=== PATIENT | male | born 1975 | race African-American/Black ===

== ENCOUNTER 2024-10-30 12:47 | Outpatient (AMB) | payer OTHER, SELFPAY ==
--- NOTE | 2024-10-30 13:00 | MHC.PC.OV ---
Vital Signs 10/30/24 13:09 10/30/24 13:22 Height 5 ft 5 in Weight 234 lb 8 oz BMI 39.0 BP 145/90 H 138/90 H Blood Pressure Location Rt brachial Lt brachial Position Sitting Sitting Respiration 16 Pulse 74 Pulse Source Pulse Oximeter Temp 98.2 F Temp Source Oral Pulse Oximetry (%) 98 Oxygen Delivery Method Room Air Intake Visit Reasons: EST CARE/REQUESTING PE Intake Note: patient here for new patient visit Solutions Delivery Consultant Required: No Allergies No Known Allergies Allergy (Verified 10/30/24 13:17) Medication List - Last Reconciled 10/30/24 by Mayank Anguiano CNP lisinopril-hydrochlorothiazide 10-12.5 mg 1 tab PO DAILY montelukast 10 mg PO DAILY rosuvastatin 10 mg PO DAILY Tobacco use date assessed: 10/30/24 Dental Screening Dental Screen Date: 10/30/24 Did you have a dental visit in the last 12 months?: No Did you have a dental problem in the last 6 months where you did not have access to dental care?: No Was dental information given to patient?: Yes HPI HPI Comments History of Present Illness Details New patient Prior PCP? - Dr. [place] in [place] Last office visit/CPE/labs - About a year ago Acute issue(s) - HTN. He is on lisinopril-hydrochlorothiazide 10-12.5 mg daily - HLD. He is on rosuvastatin 10 mg daily. - Allergies. He is on montelukast 10 mg daily. Past Medical History - HTN - HLD Surgical History - None Family History - Dad: HTN - Mom: HTN - MGM: HTN - PGM: HTN Social History - Nonsmoker. Does not vape. Does not drink alcohol. Denies recreational drug use - Has been making healthy dietary choices. Active but does not exercise routinely. Generally sleep well Health maintenance - Last eye exam was 11/2023. Referral to Ophthalmology - Last dental visit was in 02/2024; encouraged to schedule an appointment with his dentist for routine dental care - Last tetanus vaccine was in 2021 - Has not been vaccinated for the flu this season; declines vaccination - Last colonoscopy was a year ago: normal. Record from former PCP not available; will review record once received [facility] Medical History (Updated 10/30/24 @ 18:57 by Mayank Anguiano CNP) High cholesterol High blood pressure Family History (Updated 10/30/24 @ 13:14 by Marissa Guerrero) Mother High blood pressure Father High blood pressure Maternal Grandmother High blood pressure Paternal Grandmother High blood pressure Social History Housing: House Patient Tobacco Use Status: Never used Tobacco e-Cigarette/Vaping Use: Never Used Second Hand Smoke Exposure: No service: No Current occupational status: employed Current occupation: planning and analysis manager Current occupational exposures/hazards: No Cognitive needs: No Hearing needs: No Vision needs: No Questionnaire PHQ-9 Over the last 2 weeks, how often have you been bothered by any of the following problems? 1. Little interest or pleasure in doing things: not at all 2. Feeling down, depressed, or hopeless: not at all 3. Trouble falling or staying asleep, or sleeping too much: not at all 4. Feeling tired or having little energy: not at all 5. Poor appetite or overeating: not at all 6. Feeling bad about yourself - or that you are a failure or have let yourself or your family down: not at all 7. Trouble concentrating on things, such as reading the newspaper or watching television: not at all 8. Moving or speaking so slowly that other people could have noticed. Or the opposite - being so fidgety or restless that you have been moving around a lot more than usual: not at all 9. Thoughts that you would be better off or of hurting yourself in some way: not at all Total score: 0 Depression Screening Interpretation: Negative Depression Screening Done: Yes 26817 - PHQ-9 Billing: Yes Source: Developed by Drs. David Perry, Estefanía Man, Mario Em and colleagues, with an educational maynor from [employer]. Thrive Questionnaire Date Thrive assessed: 10/30/24 I am a: Patient What is your living situation today?: I have a steady place to live Within the past 12 months, did the food you bought not last and you didn't have the money to get more?: Never true Within the past 12 months, did you worry whether your food would run out before you got money to buy more?: Never true Do you have trouble paying for medicines?: No Do you have trouble getting transportation to medical appointments?: No Do you have trouble paying your heating and electricity bill?: No Do you have trouble taking care of your child, family member or friend?: No Do you have trouble with day-to-day activities such as bathing, preparing meals, shopping, managing finances, etc.?: No Are you currently unemployed and looking for a job?: No Are you interested in more education?: Yes Please select the resources that you would like help with: None Currently or been in a relationship where the following occur: No concerns reported THRIVE Score: 0 AUDIT C Alcohol Use Questionnaire (AUDIT-C) 1. How often do you have a drink containing alcohol?: Never Total Score: 0 Score Reviewed/Action Taken: Yes YOSVANY-7 AMB Questionnaire YOSVANY-7 Date YOSVANY - 7 assessed: 10/30/24 Feeling nervous, anxious, or on edge: 0 = Not at all Not being able to stop or control worryin = Not at all Worrying too much about different things: 0 = Not at all Trouble relaxin = Not at all Being so restless that it is hard to sit still: 0 = Not at all Becoming easily annoyed or irritable: 0 = Not at all Feeling afraid as if something awful might happen: 0 = Not at all Total YOSVANY-7 score (0-4 normal; 5-9 mild; 10-14 moderate; 15-21 severe): 0 Source: Developed by Drs. David Perry, Estefanía Man, Mario Em and colleagues, with an educational maynor from [employer]. YOSVANY-7 Assessment Billing YOSVANY-7 Assessment Tool: YOSVANY-7 Assessment 29845 Review of Systems Const Details: Denies chills, Denies fatigue, Denies fever(s), Denies headache(s) and Denies weakness HEENT Denies change in vision, Denies dizziness, Denies headache(s), Denies hearing loss, Denies nasal congestion, Denies sinus pain, Denies sinus pressure and Denies sore throat Card Denies chest pain, Denies lightheadedness, Denies dyspnea and Denies other (palpitations) Resp Denies cough, Denies dyspnea and Denies wheezing GI Denies abdominal pain, Denies melena, Denies hematochezia, Denies change in bowel habits, Denies dyspepsia and Denies nausea Denies hematuria and Denies dysuria Musc Denies abnormal gait, Denies myalgias, Denies arthralgias, Denies numbness and Denies tingling Skin/Breast Denies rash, Denies unusual bruising and Denies wounds Neuro Denies abnormal gait, Denies dizziness, Denies headache(s), Denies memory loss, Denies numbness, Denies Sensory deficit (Neuro), Denies tingling and Denies weakness Psych Denies anxiety, Denies depression and Denies memory loss Endo Denies cold intolerance, Denies fatigue, Denies heat intolerance, Denies polydipsia and Denies polyuria Andrade/Lymph Denies easy bleeding and Denies easy bruising Aller/Immun Denies wheezing Physical exam (Primary Care) Vital Signs: Last Vital Signs Temp 98.2 F 10/30/24 13:09 Pulse 74 10/30/24 13:09 Resp 16 10/30/24 13:09 BP 138/90 H 10/30/24 13:22 Pulse Ox 98 10/30/24 13:09 Oxygen Delivery Method Room Air 10/30/24 13:09 BMI result Body Mass Index 39.0 Tobacco/Smoking Status: Tobacco use Status Tobacco use date assessed 10/30/24 10/30/24 13:07 Patient Tobacco Use Status Never used Tobacco 10/30/24 13:07 e-Cigarette/Vaping Use Never Used 10/30/24 13:07 PHQ-9: PHQ-9 Score PHQ-9: Total score 0 10/30/24 13:02 Depression Screening Interpretation: Negative Thrive Assessment: Date of Thrive Assessment Date Thrive assessed 10/30/24 10/30/24 13:02 Currently or been in a relationship where the following occur: No concerns reported Const Other: General: no acute distress, well developed, alert and awake Nutritional Appearance: well nourished Orientation/consciousness: patient oriented x3 HENMT Head: Yes normocephalic and Yes atraumatic Ears: hearing grossly normal bilaterally and TM's normal bilaterally General nose exam: Normal external nose present and Normal nares present Mouth: Normal oral and palatal mucosa present and moist mucous membranes Teeth and gingiva: dentition normal Throat: Yes oropharynx normal Eyes Pupils: Equal, round and reactive pupils present and Pupil accommodation reflex normal EOM: EOMs intact bilaterally Neck Neck: Yes normal visual inspection, Yes no lymphadenopathy and Yes trachea midline Thyroid: Thyroid normal Carotids: no bruits Lymphatic: no lymphadenopathy noted Chest Chest palpation & inspection: normal inspection of the chest Resp Effort & Inspection: normal respiratory effort Auscultation: clear to auscultation bilaterally Cardio Rate: regular rate Rhythm: regular rhythm Heart sounds: S1 normal heart sound present, S2 normal heart sound present, no gallops, no murmurs and no rubs Bruits: no abdominal aortic bruits and no carotid bruits GI Palpation (GI): No Abdominal aortic bruit present, Soft to palpation, nontender, No hepatosplenomegaly present and No Rebound tenderness present Auscultation: normal bowel sounds General: Yes no CVA tenderness Back/Spine/Pelvis Back: no CVA tenderness Cervical Spine: cervical ROM normal and No Cervical spine tenderness Thoracic/Lumbar Spine: thoraco-lumbar ROM normal, No pain with thoraco-lumbar ROM, No thoracic spinal tenderness and No lumbar spinal tenderness Skin General: warm and dry. Normal skin color. Normal skin turgor Lesions: no lesions Rashes: no rashes Trauma: no lacerations or abrasions Wounds: no wounds Nails: normal Neuro General: patient oriented x3, gait normal and CN's II-XI intact bilaterally Cranial nerves: Yes Equal, round and reactive pupils present Cognition (Neuro): normal cognition Gait exam (Neuro): Normal gait present Motor exam (neuro): 5/5 motor strength present throughout Sensory Exam: No Sensory deficit (Neuro) Deep tendon reflexes (DTR's): Right patellar reflex intensity grade: 2+ and Left patellar reflex intensity grade: 2+ Extrem General: Yes normal to inspection, No edema and No calf tenderness Psych Appearance: grossly normal Affect: normal affect Attitude: cooperative Thought process: Normal thought process present Coding Level of Care Code New Pt Prev Care 40-64y(89483) Diagnoses Normal physical examination, routine Z00.00 Essential hypertension I10 Hyperlipidemia E78.5 Eye exam, routine Z01.00 Screening PSA (prostate specific antigen) Z12.5 Allergies T78.40XA Obesity (BMI 30-39.9) E66.9 Laboratory tests ordered as part of a complete physical exam (CPE) Z00.00 Additional Codes YOSVANY-7 Assessment Billing - YOSVANY-7 Assessment Tool: YOSVANY-7 Assessment 84405 ([id number]) PHQ-9 - 97297 - PHQ-9 Billing: Yes ([id number]) Assessment & Plan Assessment & Plan (1) Normal physical examination, routine: Code(s): Z00.00 - Encounter for general adult medical examination without abnormal findings Category: Medical Plan: No significant functional limitation noted. (2) Essential hypertension: Code(s): I10 - Essential (primary) hypertension Category: Medical Plan: Resting blood pressure is 130/90, slightly above goal of less than 130/90. Continue current treatment regimen. Low-sodium diet encouraged. Follow-up in 1 month or sooner with symptoms or concerns. Verbalized understanding and agreed with treatment plan. (3) Hyperlipidemia: Code(s): E78.5 - Hyperlipidemia, unspecified Category: Medical Plan: Continue current treatment regimen. Advised to limit foods high in saturated fat and avoid foods high in trans fat. Routine exercise encouraged Will check lipid panel levels and make changes as needed. (4) Eye exam, routine: Code(s): Z01.00 - Encounter for examination of eyes and vision without abnormal findings Category: Medical Plan: His last eye exam was almost a year ago. Referred to Ophthalmology for routine eye care. (5) Screening PSA (prostate specific antigen): Code(s): Z12.5 - Encounter for screening for malignant neoplasm of prostate Category: Medical Plan: PSA Lab ordered. (6) Allergies: Code(s): T78.40XA - Allergy, unspecified, initial encounter Category: Medical Plan: No acute symptoms. Montelukast as as prescribed. (7) Obesity (BMI 30-39.9): Code(s): E66.9 - Obesity, unspecified Category: Medical Plan: He currently weighs 234 lb, BMI is 39.0. Declines director of retail or weight management referral at this time. He will continue to make healthy dietary changes and start routine exercise. Healthy diet and routine exercise encouraged. Follow-up as needed. Verbalized understanding and agreed with treatment plan. (8) Laboratory tests ordered as part of a complete physical exam (CPE): Code(s): Z00.00 - Encounter for general adult medical examination without abnormal findings Category: Medical Plan: Fasting labs ordered as part of a complete physical exam. Advised to fast for at least 10 hours before getting labs drawn. May drink water Verbalized understanding and agreed with treatment plan. Orders: Orders Complete Blood Count Auto Diff Today Z00.00 - Encounter for general adult medical examination without abnormal findings Comprehensive [place]. Panel Fast Today Z00.00 - Encounter for general adult medical examination without abnormal findings TSH reflex Free T4 Today Z00.00 - Encounter for general adult medical examination without abnormal findings Lipid Panel Today Z00.00 - Encounter for general adult medical examination without abnormal findings UA CC w/rflx Micro + Cult Today Z00.00 - Encounter for general adult medical examination without abnormal findings PSA, Ultra Sensitive Today Z00.00 - Encounter for general adult medical examination without abnormal findings, Z12.5 - Encounter for screening for malignant neoplasm of prostate Referrals Ophthalmology Referral Z01.00 - Encounter for examination of eyes and vision without abnormal findings
[2024-10-30 13:09] VITALS: BP 145/90; PULSE 74; RESP 16; TEMP 36.8; O2SAT 98; BMI 39.0
[2024-10-30 13:22] VITALS: BP 138/90
== END 2024-10-30 13:42 | disposition home or self-care (01) ==
PROVIDERS: PCP Nurse Practitioner Family; Visit Provider Nurse Practitioner Family
DX: Z00.00 Encounter for general adult medical examination without abnormal findings (principal); I10 Essential (primary) hypertension; E66.9 Obesity, unspecified; Z68.39 Body mass index [BMI] 39.0-39.9, adult; E78.5 Hyperlipidemia, unspecified; Z12.5 Encounter for screening for malignant neoplasm of prostate; T78.40XA Allergy, unspecified, initial encounter

== ENCOUNTER → 2024-10-30 12:47 | Outpatient (BNVA) | payer OTHER, SELFPAY | PROVIDERS: PCP Nurse Practitioner Family; Visit Provider Nurse Practitioner Family | DX: Z00.00 Encounter for general adult medical examination without abnormal findings (principal); I10 Essential (primary) hypertension; E78.5 Hyperlipidemia, unspecified; T78.40XA Allergy, unspecified, initial encounter; E66.9 Obesity, unspecified; Z68.39 Body mass index [BMI] 39.0-39.9, adult | CPT/HCPCS: 96127 ==

== ENCOUNTER → 2024-11-06 15:19 | Outpatient (BNVA) | payer OTHER, SELFPAY | PROVIDERS: PCP Nurse Practitioner Family; Visit Provider Nurse Practitioner Family ==

== ENCOUNTER → 2024-11-06 15:32 | Outpatient (BNV) | payer OTHER, SELFPAY ==
--- NOTE | 2024-11-06 15:34 | AM.OFFVISNUR ---
Intake Visit Reasons: Amb Documentation Allergies No Known Allergies Allergy (Verified 10/30/24 13:17) Office Procedures Flu Questionnaire Does the patient have a severe egg allergy?: No Does the patient have severe life threatening allergies?: No Does the patient have a fever or illness today?: No Has the patient ever had Guillain-[place] Syndrome?: No Has the patient ever had any past reaction to a flu shot?: No Immunizations Fluarix Triv [id number] (PF) 45 mcg (15 mcg x 3)/0.5 mL IM syringe Performing Provider: Mayank Anguiano CNP Performing Location: [facility] Administered by: Brett Herrera RN on 11/06/24 15:36 Dose Route Admin Location Dispensed Lot Number Expiration Date [facility] Feather Renovator 0.5 mL IM Right Deltoid 0.5 mL [id number] 03/17/25 [id number] Virtual Event Bags VIS Given Date VIS Provided VIS Publication Date 11/06/24 Single Vaccine 21 Eligibility Eligibility Date Funding Source Not [facility] Eligible 11/06/24 Private Assessment & Plan Assessment & Plan Orders: Orders Influenza [id number] Immunization Today Z23 - Encounter for immunization Medications: New Fluarix Triv [id number] (PF) (flu vacc [id number] 6mos up(PF)) 0.5 mL IM ONCE 0.5 mL 0RF NS Z23 - Encounter for immunization Coding
== END ==
PROVIDERS: PCP Nurse Practitioner Family
DX: Z23 Encounter for immunization (principal)
CPT/HCPCS: 90471; 90656

== ENCOUNTER 2024-11-26 10:12 | Outpatient (REF) | payer OTHER, SELFPAY ==
[2024-11-26 11:42] LABS: MANUAL DIFF FLAG NO
[2024-11-26 11:46] LABS: Appearance Urine Clear; Color Urine Dark Yellow; Glucose Urine UA Negative (Negative); Leukocyte Esterase Urine Negative (Negative); Nitrite Urine Negative (Negative); PH 6.5 (5.0-9.0); Specific Gravity - Urine 1.025 (1.005-1.025); Urine Blood Negative (Negative); Urine Ketones Trace mg/dL (Negative); Urine Protein Negative (Neg-Trace)
[2024-11-26 11:48] LABS: Basophils Percent Auto 0.8 % (0-2); Eosinophils Absolute Auto 0.1 X10*3/uL (0.0-0.4); Eosinophils Percent Auto 3.6 % (0-4); Hemoglobin 15.1 g/dl (14.0-18.0); Imm Gran Abs Auto 0.01 X10*3/uL (0.00-0.03); Imm Gran Pct Auto 0.3 % (0.0-0.4); Lymphocytes Absolute Auto 1.7 X10*3/uL (1.2-4.9); Mean Corpuscular HGB Conc 32.8 g/dl (31.0-36.0); Mean Corpuscular Hemoglobin 25.3 pg (27.0-33.0); Mean Corpuscular Volume 76.9 fL (80.0-98.0); Mean Platelet Volume 10.7 fL (9.4-12.4); Monocytes Absolute Auto 0.5 X10*3/uL (0.1-1.2); Monocytes Percent Auto 14.1 % (2-11); Neutrophils Absolute Auto 1.4 x10*3/uL (2.0-8.3); Neutrophils Percent Auto 37.2 % (45-73); Platelet Count 297 X10*3/uL (160-400); Red Blood Count 5.98 X10*6/uL (4.60-5.80); Red Cell Distribution Width 14.5 % (11.0-16.0); White Blood Count 3.8 X10*3/uL (4.8-10.8)
[2024-11-26 13:00] LABS: Alanine Aminotransferase 38 U/L (0-40); Albumin Level 3.9 g/dL (3.5-5.0); Alkaline Phosphatase 57 U/L (39-117); Anion Gap 8 (12-20); Aspartate Amino Transferase 38 U/L (5-37); Bilirubin Total 0.7 mg/dL (0.0-1.0); Blood Urea Nitrogen 9 mg/dL (9-16); Calcium 8.7 mg/dL (8.4-10.2); Carbon Dioxide 30 mmol/L (22-29); Chloride 106 mmol/L (96-108); Cholesterol 121 mg/dL (<200); Estimated Glomerular Filt Rate > 60; Glucose Fasting 97 mg/dL (60-99); HDL Cholesterol 40 mg/dL (>40); LDL Cholesterol Calculated 68 mg/dL (<100); Potassium 3.4 mmol/L (3.3-5.1); Sodium 141 mmol/L (135-145); Total Protein 7.8 g/dL (6.5-8.0); Triglycerides 65 mg/dL (<150)
[2024-11-30 21:09] LABS: PSA, Ultra Sensitive 1.56 ng/mL
== END 2024-11-26 10:13 | disposition home or self-care (01) ==
LOC: HO.WFDLDS 10:12
PROVIDERS: Visit Provider Nurse Practitioner Family
DX: Z00.00 Encounter for general adult medical examination without abnormal findings (principal); Z12.5 Encounter for screening for malignant neoplasm of prostate; Z13.6 Encounter for screening for cardiovascular disorders
CPT/HCPCS: 36415; 80053; 80061; 81003; 84153; 84443; 85025

== ENCOUNTER 2024-12-02 10:11 | Outpatient (REF) | payer OTHER, SELFPAY ==
[2024-12-02 14:25] LABS: Hematocrit 43.7 % (42.0-52.0); Hemoglobin 14.5 g/dl (14.0-18.0); Mean Corpuscular HGB Conc 33.2 g/dl (31.0-36.0); Mean Corpuscular Hemoglobin 25.2 pg (27.0-33.0); Mean Platelet Volume 10.8 fL (9.4-12.4); Platelet Count 298 X10*3/uL (160-400); Red Blood Count 5.75 X10*6/uL (4.60-5.80); Red Cell Distribution Width 14.3 % (11.0-16.0); White Blood Count 4.6 X10*3/uL (4.8-10.8)
[2024-12-02 14:56] LABS: Iron 60 mcg/dL (45-160); Percent Iron Saturation 20 % (15-50); Total Iron Binding Capacity 304 mcg/dL (228-428); Unsaturated Iron Binding 244 ug/dL
[2024-12-02 15:12] LABS: Ferritin 50 ng/mL (20-250)
[2024-12-02 15:23] LABS: Folate 14.7 ng/mL (> or = 4.0); Vitamin B12 596 pg/mL (200-900)
== END 2024-12-02 10:12 | disposition home or self-care (01) ==
LOC: HO.WFDLDS 10:11
PROVIDERS: PCP Nurse Practitioner Family; Visit Provider Nurse Practitioner Family
DX: D50.9 Iron deficiency anemia, unspecified (principal); R71.8 Other abnormality of red blood cells; D72.819 Decreased white blood cell count, unspecified
CPT/HCPCS: 36415; 82607; 82728; 82746; 83540; 85027

== ENCOUNTER 2024-12-02 10:11 | Outpatient (AMB) | payer OTHER, SELFPAY ==
--- NOTE | 2024-12-02 10:19 | MHC.PC.OV ---
Vital Signs 12/02/24 10:24 Height 5 ft 5 in Weight 238 lb 6 oz BMI 39.7 BP 133/77 Blood Pressure Location Rt brachial Position Sitting Respiration 16 Pulse 92 Pulse Source Pulse Oximeter Temp 98.4 F Temp Source Oral Pulse Oximetry (%) 99 Oxygen Delivery Method Room Air Intake Visit Reasons: 1 mos HTN, labs review Intake Note: patient here for 1 month follow up on HTN and labs Allergies No Known Allergies Allergy (Verified 12/02/24 10:32) Medication List - Last Reconciled 12/02/24 by Mayank Anguiano CNP lisinopril-hydrochlorothiazide 10-12.5 mg 1 tab PO DAILY montelukast 10 mg PO DAILY rosuvastatin 10 mg PO DAILY Tobacco use date assessed: 12/02/24 Dental Screening Dental Screen Date: 12/02/24 Did you have a dental visit in the last 12 months?: Yes Did you have a dental problem in the last 6 months where you did not have access to dental care?: No Was dental information given to patient?: Patient has dentist HPI HPI Comments History of Present Illness Details 49-year-old male presents for hypertension and review of recent lab results. He admits to taking his medications as prescribed without adverse reactions. He has been making healthy dietary changes, including low-sodium. He reports painless bump to his left bicep for the past several years and requests an ultrasound before his health plan is terminated at the end of this month. He has history of lipoma that was surgically removed from his back. [facility] Medical History (Updated 12/02/24 @ 10:59 by Mayank Anguiano CNP) High cholesterol High blood pressure Family History (Updated 10/30/24 @ 13:14 by Marissa Guerrero MA) Mother High blood pressure Father High blood pressure Maternal Grandmother High blood pressure Paternal Grandmother High blood pressure Social History Housing: House Patient Tobacco Use Status: Never used Tobacco e-Cigarette/Vaping Use: Never Used Second Hand Smoke Exposure: No service: No Current occupational status: employed Current occupation: internet and e business project manager Current occupational exposures/hazards: No Cognitive needs: No Hearing needs: No Vision needs: No Questionnaire Thrive Questionnaire Date Thrive assessed: 10/30/24 I am a: Patient What is your living situation today?: I have a steady place to live Within the past 12 months, did the food you bought not last and you didn't have the money to get more?: Never true Within the past 12 months, did you worry whether your food would run out before you got money to buy more?: Never true Do you have trouble paying for medicines?: No Do you have trouble getting transportation to medical appointments?: No Do you have trouble paying your heating and electricity bill?: No Do you have trouble taking care of your child, family member or friend?: No Do you have trouble with day-to-day activities such as bathing, preparing meals, shopping, managing finances, etc.?: No Are you currently unemployed and looking for a job?: No Are you interested in more education?: Yes Please select the resources that you would like help with: None Currently or been in a relationship where the following occur: No concerns reported THRIVE Score: 0 YOSVANY-7 AMB Questionnaire YOSVANY-7 Date YOSVANY - 7 assessed: 10/30/24 Source: Developed by Drs. David Perry, Estefanía Man, Mario Em and colleagues, with an educational maynor from [employer]. Review of Systems Const Details: Const Denies chills, Denies fatigue, Denies fever(s), Denies headache(s) and Denies weakness ENT Denies dizziness and Denies headache(s) Card Denies chest pain, Denies lightheadedness, Denies dyspnea and Denies other (Palpitations) Resp Denies cough, Denies dyspnea, Denies wheezing and Denies other ( shortness of breath) GI Denies abdominal pain, Denies melena, Denies hematochezia, Denies change in bowel habits, Denies dyspepsia and Denies nausea Denies hematuria and Denies dysuria Musc Denies abnormal gait, Denies myalgias, Denies arthralgias, Denies numbness and Denies tingling Skin/Breast Reports bump to left bicep, Denies rash, Denies unusual bruising and Denies wounds Neuro Denies abnormal gait, Denies dizziness, Denies headache(s), Denies memory loss, Denies numbness, Denies Sensory deficit (Neuro), Denies tingling and Denies weakness Psych Denies anxiety, Denies depression, Denies memory loss Endo Denies cold intolerance, Denies fatigue, Denies heat intolerance, Denies polydipsia and Denies polyuria Aller/Immun Denies wheezing Physical exam (Primary Care) Vital Signs: Last Vital Signs Temp 98.4 F 12/02/24 10:24 Pulse 92 12/02/24 10:24 Resp 16 12/02/24 10:24 BP 133/77 12/02/24 10:24 Pulse Ox 99 12/02/24 10:24 Oxygen Delivery Method Room Air 12/02/24 10:24 BMI result Body Mass Index 39.7 Tobacco/Smoking Status: Tobacco use Status Tobacco use date assessed 12/02/24 12/02/24 10:23 Patient Tobacco Use Status Never used Tobacco 12/02/24 10:23 e-Cigarette/Vaping Use Never Used 12/02/24 10:23 Thrive Assessment: Date of Thrive Assessment Date Thrive assessed 10/30/24 12/02/24 10:23 Currently or been in a relationship where the following occur: No concerns reported Const Other: General: no acute distress and well developed Nutritional Appearance: well nourished Orientation/consciousness: patient oriented x3 HENMT Head: Yes normocephalic and Yes atraumatic Eyes General: appearance normal, both eyes and all related structures Pupils: Equal, round and reactive pupils present EOM: EOMs intact bilaterally Resp Effort & Inspection: normal respiratory effort Auscultation: clear to auscultation bilaterally Cardio Rate: regular rate Rhythm: regular rhythm Heart sounds: S1 normal heart sound present, S2 normal heart sound present, no gallops, no murmurs and no rubs GI Palpation (GI): No Abdominal aortic bruit present, Soft to palpation, nontender, No hepatosplenomegaly present and No Rebound tenderness present Auscultation: normal bowel sounds General: Yes no CVA tenderness Back/Spine/Pelvis Back: no CVA tenderness Cervical Spine: cervical ROM normal and No Cervical spine tenderness Thoracic/Lumbar Spine: thoraco-lumbar ROM normal, No pain with thoraco-lumbar ROM, No thoracic spinal tenderness and No lumbar spinal tenderness Extrem General: Yes normal to inspection, No edema and No calf tenderness Skin General: warm and dry. Normal skin color. Normal skin turgor Lesions: Large, nonfluctuant, nontender lump to the left bicep, laterally Rashes: no rashes Trauma: no lacerations or abrasions Wounds: no wounds Nails: normal Neuro General: patient oriented x3, gait normal and no focal neuro deficit Cranial nerves: Yes Equal, round and reactive pupils present Cognition (Neuro): normal cognition Gait exam (Neuro): Normal gait present Sensory Exam: No Sensory deficit (Neuro) Psych Appearance: grossly normal Affect: normal affect Attitude: cooperative Thought process: Normal thought process present Coding Level of Care Code Est Pt Level 4 (60720) Diagnoses Essential hypertension I10 Leukopenia D72.819 Elevated red blood cell count R71.8 Elevated AST (SGOT) R74.01 Low HDL (under 40) E78.6 Microcytic anemia D50.9 Skin lesion L98.9 Assessment & Plan Assessment & Plan (1) Essential hypertension: Code(s): I10 - Essential (primary) hypertension Category: Medical Plan: Blood pressure is 133/77, within goal of less than 140/90. Continue current treatment regimen. Low-sodium diet and routine exercise encouraged. (2) Leukopenia: Code(s): D72.819 - Decreased white blood cell count, unspecified Category: Medical Plan: Recent WBC is low, 3.8. Equivocal. Will recheck CBC and make changes as needed. (3) Elevated red blood cell count: Code(s): R71.8 - Other abnormality of red blood cells Category: Medical Plan: RBC slightly elevated, 5.98. Equivocal. Plan as above. (4) Elevated AST (SGOT): Code(s): R74.01 - Elevation of levels of liver transaminase levels Category: Medical Plan: Recent ALT level is slightly elevated, 38. Fatty liver disease possible. Healthy diet, including low-fat, and routine exercise encouraged. Will monitor lipid panel periodically or if associated symptoms or concerns. Verbalized understanding and agreed with treatment plan. (5) Low HDL (under 40): Code(s): E78.6 - Lipoprotein deficiency Category: Medical Plan: Recent HDL level is slightly low, 40. Advised to limit foods high in saturated fat and avoid foods high in trans fat. Routine exercise encouraged. Will monitor lipid panel periodically or if associated symptoms or concerns. Verbalized understanding and agreed with treatment plan. (6) Microcytic anemia: Code(s): D50.9 - Iron deficiency anemia, unspecified Category: Medical Plan: Recent MCV is low, 76.9. RBC is slightly elevated, H&H is normal. Will recheck CBC and check iron profile and ferritin levels. Will make changes as needed. Verbalized understanding and agreed with treatment plan. (7) Skin lesion: Code(s): L98.9 - Disorder of the skin and subcutaneous tissue, unspecified Category: Medical Plan: Large, nontender, nonfluctuant lump to the left bicep, laterally Ultrasound ordered. Will review results and make changes as needed. Orders: Orders IRON PROFILE Today D50.9 - Iron deficiency anemia, unspecified Ferritin Today D50.9 - Iron deficiency anemia, unspecified US extremity nonvascular Today L98.9 - Disorder of the skin and subcutaneous tissue, unspecified Complete Blood Count no Diff Today D72.819 - Decreased white blood cell count, unspecified, R71.8 - Other abnormality of red blood cells Vitamin B12 and Folate Today D50.9 - Iron deficiency anemia, unspecified
[2024-12-02 10:24] VITALS: BP 133/77; PULSE 92; RESP 16; TEMP 36.9; O2SAT 99; BMI 39.7
== END 2024-12-02 10:49 | disposition home or self-care (01) ==
LOC: HO.HMCFM 10:12
PROVIDERS: PCP Nurse Practitioner Family; Visit Provider Nurse Practitioner Family
DX: I10 Essential (primary) hypertension (principal); D72.819 Decreased white blood cell count, unspecified; E78.6 Lipoprotein deficiency; D50.9 Iron deficiency anemia, unspecified; L98.9 Disorder of the skin and subcutaneous tissue, unspecified

== ENCOUNTER 2024-12-17 10:27 | Outpatient (REF) | payer OTHER, SELFPAY ==
--- NOTE | ~2024-12-17 | US_ITS ---
CLINICAL HISTORY: L98.9 - large lump left bicep US of the left biceps region Comparison: None There is a well-circumscribed encapsulated hypoechoic focus measuring 70 mm x 33 mm x 60 mm. 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 This document has been electronically signed by: Marco Livingston MD on 12/17/2024 15:58:37
== END 2024-12-17 10:28 | disposition home or self-care (01) ==
LOC: HO.HMGCX 10:27
PROVIDERS: PCP Nurse Practitioner Family; Visit Provider Nurse Practitioner Family
DX: L98.9 Disorder of the skin and subcutaneous tissue, unspecified (principal)
CPT/HCPCS: 76882

== ENCOUNTER → 2024-12-17 11:08 | Outpatient (BNV) | payer OTHER, SELFPAY | PROVIDERS: PCP Nurse Practitioner Family; Visit Provider Radiology Diagnostic Radiology | DX: L98.9 Disorder of the skin and subcutaneous tissue, unspecified (principal) | CPT/HCPCS: 76882 ==